=== PATIENT | male | born 1950 | race Caucasian/White ===

== ENCOUNTER 2018-11-16 13:00 | Outpatient (REF) | payer MEDICARE, BC, SELFPAY ==
[2018-11-16 19:17] LABS: ALT 47 U/L (12-78); Glucose 86 mg/dL (70-100); LDL CHOLESTEROL 82 mg/dL (<100)
== END 2018-11-16 13:20 ==
LOC: NCHCN 13:00
PROVIDERS: PCP Internal Medicine; Visit Provider Internal Medicine
DX: R73.09 Other abnormal glucose (principal); I10 Essential (primary) hypertension
CPT/HCPCS: 82947; 83721; 84460

== ENCOUNTER 2021-02-23 20:52 | Outpatient (REF) | payer MEDICARE, BC, SELFPAY ==
[2021-02-23 19:42] LABS: HCT 44.8 % (40.0-50.0); HGB 14.5 g/dL (13.5-17.5); MCHC 32.4 % (32.0-36.0); MCV 92.6 fL (80-95); MPV 10.5 fL (8.0-11.0); Platelet Count 222 10^3/uL (130-400); RBC 4.84 10^6/uL (4.36-5.78); RDW 12.8 % (11.8-14.1)
[2021-02-23 19:55] LABS: Bilirubin Negative (Negative); Blood Negative (Negative); Clarity Clear (Clear); Glucose Negative (Negative); Ketones Negative (Negative); Leukocyte Esterase Negative (Negative); Nitrite Negative (Negative); Urobilinogen 0.2 EU/dL (Up TO 0.2)
[2021-02-23 20:03] LABS: ALT 38 U/L (16-63); AST 25 U/L (15-37); Albumin 4.1 g/dL (3.4-5.0); Alkaline Phosphatase 111 U/L (46-116); Anion Gap 7.5 mmol/L (3-11); BUN 10 mg/dL (7-18); Bilirubin, Total 0.7 mg/dL (0.2-1.0); CO2 29.5 mmol/L (21.0-32.0); CREATININE 0.7 mg/dL (0.70-1.30); Calcium 8.8 mg/dL (8.5-10.1); Chloride 107 mmol/L (98-107); Glucose 95 mg/dL (74-106); Potassium 4.1 mmol/L (3.5-5.1); Sodium 144 mmol/L (136-145); Total Protein 7.2 g/dL (6.4-8.2)
== END 2021-02-23 20:53 | disposition home or self-care (01) ==
LOC: NCHCN 20:52
PROVIDERS: PCP Internal Medicine; Visit Provider Internal Medicine
DX: I10 Essential (primary) hypertension (principal); R73.03 Prediabetes; Z00.00 Encounter for general adult medical examination without abnormal findings
CPT/HCPCS: 80053; 85027; 81003

== ENCOUNTER 2022-09-30 19:04 | Outpatient (REF) | payer MEDICARE, BC, SELFPAY ==
[2022-09-30 20:55] LABS: ALT 54 U/L (16-63); BUN 11 mg/dL (7-18); CREATININE 0.9 mg/dL (0.70-1.30); Calculated LDL 63 mg/dL (<100); Chloride 106 mmol/L (98-107); Cholesterol 125 mg/dL (<200); Estimated GFR 90.18 (mL/min/1.73m2); Glucose 87 mg/dL (74-106); HDL Cholesterol 47 mg/dL (40-60); Potassium 4.4 mmol/L (3.5-5.1); Sodium 143 mmol/L (136-145); Triglyceride 76 mg/dL (<150)
[2022-09-30 21:34] LABS: Creatine Kinase 195 U/L (39-308)
== END 2022-09-30 19:05 | disposition home or self-care (01) ==
LOC: NCHCN 19:04
PROVIDERS: PCP Internal Medicine; Visit Provider Internal Medicine
DX: I10 Essential (primary) hypertension (principal); I63.89 Other cerebral infarction; R73.03 Prediabetes; E78.5 Hyperlipidemia, unspecified
CPT/HCPCS: 80048; 80061; 82550; 84460

== ENCOUNTER 2023-10-24 13:43 | Outpatient (REF) | payer MEDICARE, BC, SELFPAY ==
[2023-10-24 19:15] LABS: ALT 46 U/L (16-63); BUN 11 mg/dL (7-18); CREATININE 0.7 mg/dL (0.70-1.30); Calculated LDL 65 mg/dL (<100); Chloride 108 mmol/L (98-107); Cholesterol 133 mg/dL (<200); Estimated GFR 96.69 (mL/min/1.73m2); Glucose 96 mg/dL (74-106); HDL Cholesterol 47 mg/dL (40-60); Potassium 4.2 mmol/L (3.5-5.1); Sodium 141 mmol/L (136-145); Triglyceride 107 mg/dL (<150)
[2023-10-24 19:56] LABS: Creatine Kinase 167 U/L (39-308)
[2023-10-24 20:13] LABS: Hemoglobin A1C 5.7 % (<5.7)
== END 2023-10-24 13:44 | disposition home or self-care (01) ==
LOC: NCHCN 13:43
PROVIDERS: PCP Internal Medicine; Visit Provider Internal Medicine
DX: E78.5 Hyperlipidemia, unspecified (principal); R73.03 Prediabetes
CPT/HCPCS: 80048; 80061; 82550; 83036; 84460